=== PATIENT | female | born 1985 | race African-American/Black ===

== ENCOUNTER 2018-02-08 11:49 | Inpatient (IN) | payer SELFPAY ==
[~2018-02-08] VITALS: Ht 160 cm; Wt 71.8 kg
[2018-02-08 13:08] LABS: Basophils # (auto) 0 uL; Eosinophils # (auto) 0.1 uL; Monocytes # (auto) 0.2 uL; Nucleated Red Blood Cells % 0.1 %
[2018-02-08 13:10] LABS: Hemoglobin 7.2 g/dL (12.2-16.2)
[2018-02-08 13:15] LABS: Basophils % (auto) 0.8 % (0.0-2.0); Eosinophils % (auto) 1.4 % (0.0-7.0)
[2018-02-08] MEDS ORDERED: SODIUM CHLORIDE 0.9% 1,000 ML IVB ONE (13:15)
[2018-02-08 13:35] LABS: Alanine Aminotransferase 15 U/L (13-56); Albumin 3.5 g/dL (3.4-5.0); Alkaline Phosphatase 46 U/L (45-117); Anion Gap 15 (5-15); Aspartate Aminotransferase 13 U/L (15-37); BUN/Creatinine Ratio 10.5; Bilirubin, Total 0.6 mg/dL (0.2-1.0); Blood Urea Nitrogen 9 mg/dL (7-18); Calcium 8.9 mg/dL (8.5-10.1); Carbon Dioxide 18 mmol/L (21-32); Chloride 107 mmol/L (98-107); GFR African American 100 mL/min; GFR Non-African American 82 mL/min; Glucose 95 mg/dL (74-106); Hematocrit 25.6 % (36.0-46.0); Lymphocytes # (auto) 1.3 uL; Lymphocytes % (auto) 31.5 % (10.0-50.0); Mean Corpuscular Hgb Conc. 28.2 g/dL (32.0-36.0); Mean Corpuscular Volume 56.7 fL (80.0-100.0); Monocytes % (auto) 5.8 % (0.0-12.0); Neutrophils # (auto) 2.5 uL; Neutrophils % (auto) 60.5 % (37.0-80.0); Platelet Count (auto) 240 10^3/uL (140-450); Red Blood Cells 4.53 10^6/uL (4.0-5.20); Sodium 140 mmol/L (136-145); Total Protein 8.1 g/dL (6.4-8.2); White Blood Cell 4.1 10^3/uL (4.4-10.8)
[2018-02-08 13:36] LABS: Red Cell Distribution Width 21.9 % (11.8-14.3)
[2018-02-08] MEDS ORDERED: POTASSIUM CHL 20 Meq TABLET PO ONE ×2 (13:45→14:45)
[2018-02-08] MEDS ORDERED: MORPHINE SULF(PF) 0.5MG/ML 10ML VIAL IV PRN (15:15)
[2018-02-08] MEDS ORDERED: NITROGLYCERIN 0.4 MG SL TAB SL PRN (15:15)
[2018-02-08 16:13] LABS: Folate (Folic Acid) 11.09 ng/mL (5.38-24)
[2018-02-08] MEDS: SODIUM CHLORIDE 0.9% 1,000 ML IV SCH (18:34)
[2018-02-08 21:15] VITALS: BP 109/62
[2018-02-08 22:00] VITALS: BP 109/62
[2018-02-09] VITALS (7 sets, daily range): BP systolic 95–122; BP diastolic 58–79
[2018-02-09 05:11] LABS: Urine Bacteria NONE SEEN /hpf (None Seen); Urine Blood Negative /uL (Negative); Urine Specific Gravity 1.018 (1.001-1.035); Urine WBC 1 /hpf (0 - 5)
[2018-02-09 07:20] LABS: Mean Corpuscular Hemoglobin 16.3 pg (28.0-32.0); White Blood Cell 2.8 10^3/uL (4.4-10.8)
[2018-02-09 07:24] LABS: Hematocrit 24.2 % (36.0-46.0); Mean Corpuscular Hgb Conc. 28.2 g/dL (32.0-36.0); Mean Corpuscular Volume 57.7 fL (80.0-100.0); Platelet Count (auto) 221 10^3/uL (140-450); Red Blood Cells 4.19 10^6/uL (4.0-5.20)
[2018-02-09 07:37] LABS: Hemoglobin 6.8 g/dL (12.2-16.2); Red Cell Distribution Width 22.6 % (11.8-14.3)
[2018-02-09 07:38] LABS: Basophils % (manual) 0 (0.0-2.0); Blast Cells 0; Metamyelocytes % 0; Myelocytes % 0; Promyelocytes % 0; Reactive Lymphocytes 0
[2018-02-09 08:16] LABS: Band Neutrophils % (manual) 2; Lymphocytes % (manual) 42 (10.0-50.0); Monocytes % (manual) 10 (0-12)
[2018-02-09 08:17] LABS: Eosinophils % (manual) 9 (0-7)
[2018-02-09] MEDS: SODIUM CHLORIDE 0.9% 1,000 ML IV SCH ×2 (10:36→18:23)
[2018-02-09] MEDS: PANTOPRAZOLE 40 MG TAB PO SCH (11:59)
[2018-02-09] MEDS: FERROUS SULFATE 325 MG TAB PO SCH (18:23)
[2018-02-09 21:23] LABS: Hematocrit 28.6 % (36.0-46.0); Hemoglobin 8.3 g/dL (12.2-16.2)
[2018-02-10 05:00] VITALS: BP 105/65
[2018-02-10 06:09] LABS: Potassium 3.3 mmol/L (3.5-5.1)
[2018-02-10 06:18] LABS: BUN/Creatinine Ratio 7.1; Calcium 8.4 mg/dL (8.5-10.1)
[2018-02-10 06:25] LABS: Basophils # (auto) 0 uL; Basophils % (auto) 0.5 % (0.0-2.0); Eosinophils # (auto) 0.4 uL; Eosinophils % (auto) 10.4 % (0.0-7.0); Hematocrit 29.8 % (36.0-46.0); Hemoglobin 8.6 g/dL (12.2-16.2); Lymphocytes # (auto) 1.9 uL; Lymphocytes % (auto) 52.1 % (10.0-50.0); Mean Corpuscular Hemoglobin 17.6 pg (28.0-32.0); Mean Corpuscular Hgb Conc. 28.8 g/dL (32.0-36.0); Monocytes # (auto) 0.2 uL; Monocytes % (auto) 6.9 % (0.0-12.0); Neutrophils # (auto) 1.1 uL; Neutrophils % (auto) 30.1 % (37.0-80.0); Nucleated Red Blood Cells % 0.1 %; Platelet Count (auto) 238 10^3/uL (140-450); Red Blood Cells 4.89 10^6/uL (4.0-5.20); White Blood Cell 3.6 10^3/uL (4.4-10.8)
[2018-02-10 06:49] LABS: Red Cell Distribution Width 26.5 % (11.8-14.3)
[2018-02-10] MEDS: SODIUM CHLORIDE 0.9% 1,000 ML IV SCH (07:21)
[2018-02-10 08:00] VITALS: BP 112/71
[2018-02-10] MEDS: PANTOPRAZOLE 40 MG TAB PO SCH (09:39)
[2018-02-10] MEDS: FERROUS SULFATE 325 MG TAB PO SCH (09:39)
== END 2018-02-10 12:30 | disposition home or self-care (01) | DRG 761 ==
LOC: ER 11:49 → TELE 11:50 → TELE-CENTR 21:15
PROVIDERS: ADMIT Internal Medicine; ATTEND Internal Medicine
PROC: 30233N1 Transfusion of Nonautologous Red Blood Cells into Peripheral Vein, Percutaneous Approach (ICD-10-PCS; principal; 2018-02-09)
DX: N92.0 Excessive and frequent menstruation with regular cycle (principal); D50.0 Iron deficiency anemia secondary to blood loss (chronic); E87.6 Hypokalemia
CPT/HCPCS: 36415; 36430; 71046; 80048; 80053; 81001; 82607; 82746; 83021; 83540; 83550; 83615; 83735; 84484; 84702; 85007; 85014; 85018; 85025; 85027; 85045; 85379; 85660; 86850; 86900; 86901; 86920; 93005; 94761; 96360; 96361

== ENCOUNTER 2018-02-26 00:37 | Emergency (ER) | payer SELFPAY ==
[~2018-02-26] VITALS: Ht 160 cm; Wt 68.0 kg
[2018-02-26 02:30] VITALS: BP 128/78
[2018-02-26] MEDS ORDERED: IBUPROFEN 600 MG TAB PO ONE (02:30)
[2018-02-26] MEDS ORDERED: HYDROcodone-ACET 10/325MG TAB PO ONE (02:30)
== END 2018-02-26 07:17 | disposition home or self-care (01) ==
LOC: ER 00:37 → EDBD 00:37 → ER 03:26
DX: S80.01XA Contusion of right knee, initial encounter (principal); V43.92XA Unspecified car occupant injured in collision with other type car in traffic accident, initial encounter; Y93.89 Activity, other specified; Y92.89 Other specified places as the place of occurrence of the external cause; Y99.8 Other external cause status
CPT/HCPCS: 29505; 73562

== ENCOUNTER 2018-04-12 01:06 | Emergency (ER) | payer SELFPAY ==
[~2018-04-12] VITALS: Ht 160 cm; Wt 68.0 kg
[2018-04-12 01:16] VITALS: BP 112/64
[2018-04-12] MEDS ORDERED: ACETAMINOPHEN 325 MG TAB PO ONE (03:00)
[2018-04-12] MEDS ORDERED: methylPREDNISolone SOD SUCC 125 MG/2 ML VL IM ONE ×2 (05:45→06:30)
== END 2018-04-12 06:20 | disposition home or self-care (01) ==
LOC: ER 01:10
DX: M62.838 Other muscle spasm (principal); M79.651 Pain in right thigh
CPT/HCPCS: 96372; 99283; J2930

== ENCOUNTER 2018-06-04 03:25 | Emergency (ER) | payer MEDICAID ==
[~2018-06-04] VITALS: Ht 160 cm; Wt 68.0 kg
[2018-06-04 04:05] LABS: Basophils # (auto) 0.1 uL; Basophils % (auto) 1.2 % (0.0-2.0); Eosinophils # (auto) 0.5 uL; Eosinophils % (auto) 9.7 % (0.0-7.0); Hematocrit 37.9 % (36.0-46.0); Lymphocytes # (auto) 2.4 uL; Lymphocytes % (auto) 45.9 % (10.0-50.0); Mean Corpuscular Hemoglobin 24.8 pg (28.0-32.0); Mean Corpuscular Hgb Conc. 31.6 g/dL (32.0-36.0); Mean Corpuscular Volume 78.3 fL (80.0-100.0); Monocytes # (auto) 0.4 uL; Neutrophils # (auto) 1.9 uL; Neutrophils % (auto) 36.2 % (37.0-80.0); Nucleated Red Blood Cells % 0.2 %; Platelet Count (auto) 256 10^3/uL (140-450); Red Blood Cells 4.83 10^6/uL (4.0-5.20); Red Cell Distribution Width 15.4 % (11.8-14.3); White Blood Cell 5.3 10^3/uL (4.4-10.8)
[2018-06-04 04:20] LABS: Albumin 3.3 g/dL (3.4-5.0); BUN/Creatinine Ratio 18.9; Calcium 8.3 mg/dL (8.5-10.1); Potassium 3.9 mmol/L (3.5-5.1)
[2018-06-04 04:23] LABS: Bilirubin, Total 0.2 mg/dL (0.2-1.0); Total Protein 7.2 g/dL (6.4-8.2)
[2018-06-04 04:44] VITALS: BP 123/70
[2018-06-04] MEDS ORDERED: FAMOTIDINE (10MG/ML) 2ML VL IV ONE (05:00)
[2018-06-04] MEDS ORDERED: diphenhdrAMINE HCL 50 MG/1 ML VL IV ONE (05:00)
[2018-06-04] MEDS ORDERED: cefTRIAXone 1GM/10ml IVPUSH 10 ML IV ONE (05:00)
[2018-06-04] MEDS ORDERED: EPINEPHrine HCL 1 MG/1 ML AMP SC ONE (05:00)
[2018-06-04] MEDS ORDERED: SODIUM CHLORIDE 0.9% 1,000 ML IV ONE (05:00)
== END 2018-06-04 06:50 | disposition home or self-care (01) ==
LOC: ER 03:25
DX: L25.8 Unspecified contact dermatitis due to other agents (principal); T50.995A Adverse effect of other drugs, medicaments and biological substances, initial encounter; Y92.89 Other specified places as the place of occurrence of the external cause
CPT/HCPCS: 36415; 80053; 85025; 96372; 96374; 96375; 99284; J0171; J0696; J1200; J3490; J7030

== ENCOUNTER 2018-06-10 04:24 | Emergency (ER) | payer MEDICAID ==
[~2018-06-10] VITALS: Ht 160 cm; Wt 63.5 kg
[2018-06-10 04:51] VITALS: BP 106/58
[2018-06-10] MEDS ORDERED: TRIAMCINOLONE 40MG/ML 1ML VIAL ONE (04:59)
[2018-06-10] MEDS ORDERED: TRIAMCINOLONE 40MG/ML 1ML VIAL IM ONE (05:00)
== END 2018-06-10 06:32 | disposition home or self-care (01) ==
LOC: ER 04:24
DX: L03.114 Cellulitis of left upper limb (principal); L03.113 Cellulitis of right upper limb; Z88.8 Allergy status to other drugs, medicaments and biological substances
CPT/HCPCS: 96372; 99283; J3301

== ENCOUNTER 2018-07-01 13:19 | Emergency (ER) | payer SELFPAY ==
[~2018-07-01] VITALS: Ht 160 cm; Wt 68.0 kg
[2018-07-01 13:46] VITALS: BP 123/61
== END 2018-07-01 14:57 | disposition home or self-care (01) ==
LOC: ER 13:31
DX: L23.9 Allergic contact dermatitis, unspecified cause (principal); Z88.8 Allergy status to other drugs, medicaments and biological substances

== ENCOUNTER 2019-08-16 12:08 | Emergency (ER) | payer SELFPAY ==
[~2019-08-16] VITALS: Ht 160 cm; Wt 68.9 kg
[2019-08-16 12:16] VITALS: BP 143/68
== END 2019-08-16 14:33 | disposition home or self-care (01) ==
LOC: ER 12:14
DX: L01.00 Impetigo, unspecified (principal)

== ENCOUNTER 2019-08-18 09:53 | Emergency (ER) | payer SELFPAY ==
[~2019-08-18] VITALS: Ht 160 cm; Wt 68.9 kg
[2019-08-18 10:04] VITALS: BP 127/77
== END 2019-08-18 10:41 | disposition home or self-care (01) ==
LOC: ER 09:56
DX: L20.9 Atopic dermatitis, unspecified (principal); L01.00 Impetigo, unspecified